=== PATIENT | female | born 1990 | race Caucasian/White ===

== ENCOUNTER 2017-07-10 12:15 | Inpatient (IN) | payer OTHER ==
[~2017-07-10] VITALS: Ht 157.5 cm; Wt 66.2 kg
[2017-07-16] MEDS ORDERED: PRENATAL 19 TA1 EAC1 PO (14:39)
[2017-07-16] MEDS ORDERED: IRON325 MG PO (14:40)
== END 2017-07-18 13:21 | DRG 775 ==
LOC: SURG-SUITE 07-16 12:48 → LDR 07-16 12:48 → SURG-SUITE 07-16 20:29 → OB/GYN 07-23 12:15
PROC: 0UQMXZZ Repair Vulva, External Approach (ICD-10-PCS; principal; 2017-07-16)
PROC: 10E0XZZ Delivery of Products of Conception, External Approach (ICD-10-PCS; 2017-07-16)
PROC: 3E033VJ Introduction of Other Hormone into Peripheral Vein, Percutaneous Approach (ICD-10-PCS; 2017-07-16)
PROC: 4A1HXCZ Monitoring of Products of Conception, Cardiac Rate, External Approach (ICD-10-PCS; 2017-07-16)
PROC: 4A033R1 Measurement of Arterial Saturation, Peripheral, Percutaneous Approach (ICD-10-PCS; 2017-07-16)
DX: O71.82 Other specified trauma to perineum and vulva (principal); O36.0930 Maternal care for other rhesus isoimmunization, third trimester, not applicable or unspecified; O99.62 Diseases of the digestive system complicating childbirth; K21.9 Gastro-esophageal reflux disease without esophagitis; O69.81X0 Labor and delivery complicated by cord around neck, without compression, not applicable or unspecified; E03.8 Other specified hypothyroidism; O99.284 Endocrine, nutritional and metabolic diseases complicating childbirth; Z3A.39 39 weeks gestation of pregnancy; Z37.0 Single live birth

== ENCOUNTER → 2019-09-14 | Outpatient (CLI) | payer OTHER ==
[~2019-09-14] MED LIST: IRON325 MG PO; PRENATAL 19 TA1 EAC1 PO
== END | disposition home or self-care (01) ==
LOC: PRENATAL 08:00
DX: O35.3XX1 Maternal care for (suspected) damage to fetus from viral disease in mother, fetus 1 (principal)

== ENCOUNTER → 2019-11-21 | Outpatient (CLI) | payer OTHER | END | disposition home or self-care (01) | LOC: PRENATAL 11:30 | DX: O26.843 Uterine size-date discrepancy, third trimester (principal); Z36.89 Encounter for other specified antenatal screening ==

== ENCOUNTER 2020-01-19 03:52 | Inpatient (IN) | payer OTHER ==
[~2020-01-19] VITALS: Ht 157.5 cm; Wt 60.3 kg
[2020-01-21] MEDS ORDERED: FUSION PLUS CA1 EACH PO (12:30)
== END 2020-01-21 13:11 | disposition home or self-care (01) | DRG 807 ==
LOC: LDR 03:52 → SURG-SUITE 03:52 → OB/GYN 01-27 08:50
PROVIDERS: ADMIT Obstetrics & Gynecology; ATTEND Obstetrics & Gynecology
PROC: 10E0XZZ Delivery of Products of Conception, External Approach (ICD-10-PCS; principal; 2020-01-19)
PROC: 10907ZC Drainage of Amniotic Fluid, Therapeutic from Products of Conception, Via Natural or Artificial Opening (ICD-10-PCS; 2020-01-19)
PROC: 4A1HXCZ Monitoring of Products of Conception, Cardiac Rate, External Approach (ICD-10-PCS; 2020-01-19)
DX: O99.824 Streptococcus B carrier state complicating childbirth (principal); Z37.0 Single live birth; O99.02 Anemia complicating childbirth; D64.89 Other specified anemias; O86.19 Other infection of genital tract following delivery; Z20.828 Contact with and (suspected) exposure to other viral communicable diseases; Z3A.39 39 weeks gestation of pregnancy